=== PATIENT | male | born 1965 | race Caucasian/White ===

== ENCOUNTER 2019-09-05 09:42 | Day surgery (SDC) | payer OTHER, SELFPAY ==
[2019-09-05] VITALS (7 sets, daily range): BP systolic 103–164; BP diastolic 48–114; PULSE 73–96; RESP 13–20; TEMP 36.4; O2SAT 95–100
--- NOTE | ~2019-09-05 | XR_ITS ---
XR chest 2V DATE: 09/05/2019 11:20 INDICATION: Chest pain. Choked on piece of steak. Sore throat. Vomiting. TECHNIQUE: PA and lateral views COMPARISON: 02/27/2019 PA and lateral chest FINDINGS: Normal heart size. No hilar or mediastinal enlargement. No pulmonary infiltrate or consolid ation, pleural effusion or pulmonary vascular congestion or pneumothorax. IMPRESSION: Negative chest Reviewed, dictated and finalized at location A. MOBILE ASSEMBLY SUPERVISOR IMPRESSION: Negative chest
--- NOTE | 2019-09-05 10:26 | ED.SKABFB ---
HPI - Skin/Abscess/Foreign Bdy General Chief complaint: Unspecified <Cathy Lopes PA-C - Last Filed: 09/05/19 12:18> Stated complaint: foreign body gi <IMMANUEL Patrick Last Filed: 09/05/19 12:18> Time Seen by Provider: 09/05/19 10:03 <Cathy Lopes PA-C - Last Filed: 09/05/19 12:18> Source: patient <IMMANUEL Patrick Last Filed: 09/05/19 12:18> Mode of arrival: ambulatory <IMMANUEL Patrick Last Filed: 09/05/19 12:18> Limitations: no limitations <IMMANUEL Patrick Last Filed: 09/05/19 12:18> History of Present Illness HPI narrative: This is a 54 year old male that presents to the ER for food impaction. Reports he ate a ham steak and chicken casserole for dinner last night. Reports he woke up in the middle of the night with feeling of food being stuck. Reports he has been vomiting up small chunks of ham since this morning. Reports he tried to drink some soda this morning and it came back up. Reports a similar experience last year for which he had to have an EGD by a GI doctor and was told he had some narrowing of his esophagus. Denies fever or shortness of breath. <IMMANUEL Patrick Last Filed: 09/05/19 12:18> Related Data Home medications: Home Medications Medication Instructions Recorded Confirmed lisinopril 09/05/19 omeprazole 09/05/19 <IMMANUEL Patrick Last Filed: 09/05/19 12:18> Allergies/Adverse reactions: Allergies Allergy/AdvReac Type Severity Reaction Status Date / Time No Known Allergies Allergy Verified 09/05/19 09:50 <IMMANUEL Patrick Last Filed: 09/05/19 12:18> Review of Systems Review of Systems: Narrative: CONSTITUTIONAL: Denies fever CARDIOVASCULAR: Denies chest pain RESPIRATORY: Denies dyspnea. GASTROINTESTINAL: Reports nausea, vomiting GENITOURINARY: Denies dysuria or hematuria. <Cathy Lopes PA-C - Last Filed: 09/05/19 12:18> All systems reviewed & are unremarkable except as noted in HPI and below <Cathy Lopes PA-C - Last Filed: 09/05/19 12:18> [facility] Past Medical History Medical History: Medical History (Updated 09/05/19 @ 12:17 by Cathy Lopes PA-C) Eosinophilic esophagitis Esophageal ring Food impaction of esophagus last episode Aug History of hypertension <Cathy Lopes PA-C - Last Filed: 09/05/19 12:18> Surgical History Surgical History: Surgical History (Updated 09/05/19 @ 11:01 by Cathy Lopes PA-C) History of esophagogastroduodenoscopy (EGD) <Cathy Lopes PA-C - Last Filed: 09/05/19 12:18> Social History Social History: Social History Gender identity (if verbalized by the patient): Male <Cathy Lopes PA-C - Last Filed: 09/05/19 12:18> Exam Narrative: Exam Narrative: GENERAL: Uncomfortable appearing, actively vomiting HEAD: Normocephalic, atraumatic. EYES: EOMI. ENT: Oropharynx without tonsillar hypertrophy exudate or other lesions. NECK: Supple. No adenopathy or masses. CHEST: Clear to auscultation. No respiratory distress. No wheezes rales or rhonchi HEART: Regular rate and rhythm. No murmur heard. Normal peripheral pulses. ABDOMEN: Soft, nontender, nondistended, normal active bowel sounds. EXTREMITIES: Normal range of motion. No edema. SKIN: Warm, dry, no rash. NEURO: No focal deficits. Alert and oriented x3. PSYCH: Normal mood and affect <Cathy Lopes PA-C - Last Filed: 09/05/19 12:18> Course ELECTRONIC ENGINEERING DRAFTSPERSON/PA Physician Supervision For this patient encounter, I reviewed the ELECTRONIC ENGINEERING DRAFTSPERSON or PA documentation, treatment plan, and medical decision making; and I had [id number] time with this patient. Patient seen at the bedside in conjunction with physician physiotherapy assistant. Patient with esophageal food impaction secondary to ham steak. Patient given medications in the ED without resolution of his impaction. Patient going to GI lab with Dr. Zamora. Patient does report some improvement in his discomfort at this alena
[2019-09-05] MEDS: SODIUM CHLORIDE 0.9% IV 1,000 ML 999 ML IV CONT (10:36)
[2019-09-05] MEDS: LORAZEPAM INJ 2 MG/ML VIAL 1 MG IV PUSH (10:37)
[2019-09-05] MEDS: PANTOPRAZOLE SODIUM IV 40 MG VIAL IV PUSH (10:37)
[2019-09-05] MEDS: GLUCAGON FOR INJ 1 MG VIAL 2 MG IV PUSH (10:41)
[2019-09-05] MEDS: NITROGLYCERIN SL 0.4 MG TABLET SUBLINGUAL (10:44)
[2019-09-05 10:48] LABS: Glucose Point of Care 105 (65-105)
[2019-09-05 11:19] LABS: Basophils Percent Auto 0.5 % (0.2-1.2); Eosinophils Absolute Auto 0.2 K/mm3 (0-0.3); Eosinophils Percent Auto 2.5 % (0-4.4); Hematocrit 48.2 % (42.0-52.0); Hemoglobin 17.1 g/dL (14.0-18.0); Immature Granulocyte Absolute 0.04 K/mm3 (0.00-0.031); Immature Granulocyte Percent A 0.5 % (0-0.5); Lymphocytes Absolute Auto 2.07 K/mm3 (0.9-3.2); Mean Corpuscular HGB Conc 35.5 g/dl (32-36); Mean Corpuscular Hemoglobin 33.6 pg (26-34); Mean Corpuscular Volume 94.7 fl (80-100); Mean Platelet Volume 12.5 fl (7.4-10.4); Monocytes Absolute Auto 0.7 K/mm3 (0.1-0.6); Monocytes Percent Auto 8.2 % (2.6-8.5); Neutrophils Percent Auto 62.3 % (45.5-73.1); Platelet Count Result 173 k/mm3 (150-375); Red Blood Count 5.09 M/mm3 (4.6-6.20); Red Cell Distribution Width 12.3 % (11.5-14.5)
[2019-09-05 11:32] LABS: Alanine Aminotransferase 221 U/L (4-50); Albumin Level 5.1 g/dL (3.5-5.1); Alkaline Phosphatase 94 U/L (38-126); Aspartate Amino Transferase 97 U/L (17-59); Bilirubin,Total 0.6 mg/dL (0.2-1.3); Blood Urea Nitrogen 10 mg/dL (9-20); Calcium 9.6 mg/dL (8.4-10.2); Carbon Dioxide 27 mmol/L (22-30); Chloride 99 mmol/L (98-107); Estimated CRCL calculation 111 ml/min; Estimated Glomerular Filt Rate > 60; Glucose 105 mg/dL (75-110); Potassium 4.1 mmol/L (3.4-5.0); Sodium 143 mmol/L (137-145)
--- NOTE | 2019-09-05 12:11 | WPDANESEPP ---
Anes - Eval Pre Procedure Procedure: Operation Date: 09/05/19 12:00 Proposed Procedures p Esophagogastroduodenoscopy - Yusuf Zamora MD Date/Time: 09/05/19 12:11 Surgeon: Farhana Zamora MD Pre Op Diagnosis: foreign body gi Patient Data Age: 54 Gender: M Height: 5 ft 11 in Weight: 85 kg Last Vital Signs Temp 97.5 F L 09/05/19 09:46 Pulse 88 09/05/19 11:04 Resp 18 09/05/19 11:04 BP 130/87 09/05/19 11:04 Pulse Ox 97 09/05/19 11:04 Allergies Allergy/AdvReac Type Severity Reaction Status Date / Time No Known Allergies Allergy Verified 09/05/19 09:50 Home Medications Medication Instructions Recorded Confirmed Type lisinopril 09/05/19 History omeprazole 09/05/19 History Laboratory Tests 09/05/19 09/05/19 09/05/19 10:43 11:14 11:14 WBC 8.0 K/mm3 K/mm3 (4.5-10.0) RBC 5.09 M/mm3 M/mm3 (4.6-6.20) Hgb 17.1 g/dL g/dL (14.0-18.0) Hct 48.2 % % (42.0-52.0) MCV 94.7 fl fl (80-100) MCH 33.6 pg pg (26-34) MCHC 35.5 g/dl g/dl (32-36) RDW 12.3 % % (11.5-14.5) Plt Count 173 k/mm3 k/mm3 (150-375) MPV 12.5 fl H fl (7.4-10.4) Immature Gran % (Auto) 0.5 % % (0-0.5) Neut % (Auto) 62.3 % % (45.5-73.1) Lymph % (Auto) 26.0 % % (18.3-44.2) [place] % (Auto) 8.2 % % (2.6-8.5) Eos % (Auto) 2.5 % % (0-4.4) Baso % (Auto) 0.5 % % (0.2-1.2) Lymph # (Auto) 2.07 K/mm3 K/mm3 (0.9-3.2) [place] # (Auto) 0.7 K/mm3 H K/mm3 (0.1-0.6) Eos # (Auto) 0.2 K/mm3 K/mm3 (0-0.3) Baso # (Auto) 0.0 K/mm3 K/mm3 (0.0-0.1) Abs Immat Gran (auto) 0.04 K/mm3 H K/mm3 (0.00-0.031) Absolute Neuts (auto) 5.0 K/mm3 K/mm3 (1.3-6.7) Absolute Nucleated RBC 0.0 K/mm3 K/mm3 (0.0-0.012) Nucleated RBC % 0.0 % % (0.0-0.2) Sodium 143 mmol/L mmol/L (137-145) Potassium 4.1 mmol/L mmol/L (3.4-5.0) Chloride 99 mmol/L mmol/L (98-107) Carbon Dioxide 27 mmol/L mmol/L (22-30) BUN 10 mg/dL mg/dL (9-20) Creatinine 0.70 mg/dL mg/dL (0.7-1.3) Estim Creat Clear Calc 111 ml/min ml/min Estimated GFR > 60 (59 - ) Glucose 105 mg/dL mg/dL (75-110) POC Capillary Glucose 105 mg/dl mg/dl (65-105) Calcium 9.6 mg/dL mg/dL (8.4-10.2) Total Bilirubin 0.6 mg/dL mg/dL (0.2-1.3) AST 97 U/L H U/L (17-59) ALT 221 U/L H U/L (4-50) Alkaline Phosphatase 94 U/L U/L (38-126) Total Protein 9.0 g/dL H g/dL (6.3-8.2) Albumin 5.1 g/dL g/dL (3.5-5.1) Patient hx anesthesia problems: none Family hx anesthesia problems: none [facility] Past Medical History Medical History (Updated 09/05/19 @ 12:17 by Cathy Lopes PA-C) Eosinophilic esophagitis Esophageal ring Food impaction of esophagus last episode Aug History of hypertension Surgical History Surgical History (Updated 09/05/19 @ 11:01 by Cathy Lopes PA-C) History of esophagogastroduodenoscopy (EGD) Social History Social History Gender identity (if verbalized by the patient): Male Exam Day of Procedure 09/05/19 12:11
--- NOTE | 2019-09-05 12:12 | WPDGICN ---
Assessment and Plan Additional Plan This is a 54-year-old white male patient mass see at the request of the emergency room. Patient in usual state of health till last evening he ate ham in meat. He subsequently was unable to swallow. He woke in the middle the night still unable to swallow he had regurgitate his small amount of food. He continues to be unable to swallow and for this reason went to the emergency room for further evaluation. Past history is significant for heartburn he has been treated for acid reflux for about 1 year. He has been treated with omeprazole 20 mg p.o. daily. There was a brief interval during this last year where this was discontinued. He states while taking this medication anal longer has heartburn. In February of 2019 had a food impaction. Distal esophageal ring was encountered. There was a suspicion of the eosinophilic esophagitis. Patient never had the web dilated. it was anticipated he would follow up for outpatient dilatation that has not yet been accomplished. Patient denies weight loss. Family history is noncontributory. Current medications include lisinopril and omeprazole. He has no stated drug allergies. Past medical history is significant for hypertension in addition to GE reflux. As stated there is a suspicion unconfirmed of eosinophilic esophagitis. Physical exam reveals patient to be alert. Comfortable at rest. HEENT exam unremarkable. Lungs are clear to auscultation and percussion. Heart is without murmur or extra sounds. Abdominal exam bowel sounds present soft nontender with no organomegaly. Rectal exam is deferred. CBC reveals CBC to be normal. Electrolytes are unremarkable. AST 97, ALT 221, total bilirubin 0.6, alk-phos 94. Impression 1. Food impaction. Appears to be on the basis of known esophageal web stricturing. GE reflux or possible eosinophilic esophagitis is to be considered. Plan is for EGD today. Dilatation and biopsy should be accomplished if unable to be accomplished today will need to be at a later date. 2. Heartburn suggestive of underlying acid reflux. Patient should remain on long-term PPI therapy. Anti-reflux measures are encourage. 3. Hypertension. Appears to be stable on lisinopril. 4. Elevated LFTs. Etiology unclear patient will require choir up patient follow-up with this and workup. GI Consult Note Consult date/time: 09/05/19 12:12 HPI: Zachariah Romero is a 54 year old male [facility] Past Medical History Medical History (Updated 09/05/19 @ 11:57 by Melissa Suero CRNA) Eosinophilic esophagitis Esophageal ring Food impaction of esophagus last episode Aug History of hypertension Surgical History Surgical History (Updated 09/05/19 @ 11:01 by Cathy Lopes PA-C) History of esophagogastroduodenoscopy (EGD) Social History Social History Gender identity (if verbalized by the patient): Male Meds Home Medications and Allergies Home Medications Medication Instructions Recorded Confirmed Type lisinopril 09/05/19 History omeprazole 09/05/19 History Allergies Allergy/AdvReac Type Severity Reaction Status Date / Time No Known Allergies Allergy Verified 09/05/19 09:50 Vital Signs Vital Signs - 24 hr 09/05/19 09:46 09/05/19 10:45 09/05/19 11:04 Temperature 36.4 C L Pulse Rate 93 94 88 Respiratory Rate 18 13 18 Blood Pressure 164/114 H 124/91 H 130/87 Pulse Oximetry 100 95 97 Results Labs CBC & Chem 7: 09/05/19 11:14 09/05/19 11:14 Labs: Short CBC 09/05/19 Range/Units 11:14 WBC 8.0 (4.5-10.0) K/mm3 Hgb 17.1 (14.0-18.0) g/dL Hct 48.2 (42.0-52.0) % Plt Count 173 (150-375) k/mm3 BMP 09/05/19 11:14 Sodium 143 Potassium 4.1 Chloride 99 Carbon Dioxide 27 BUN 10 Creatinine 0.70 Glucose 105 Calcium 9.6 Liver Function 09/05/19 Range/Units 11:14 Total Bilirubin 0.6 (0.2-1.3) mg/dL AST 97 H (17-59) U/L ALT
[2019-09-05] MEDS: LACTATED RINGERS 1,000 ML 150 ML IV CONT (12:20)
[2019-09-05 13:03] LABS: Hepatitis B Surface Antigen Negative (Negative)
[2019-09-05 13:04] LABS: Alanine Aminotransferase 215 U/L (4-50); Albumin Level 5.1 g/dL (3.5-5.1); Alkaline Phosphatase 96 U/L (38-126); Aspartate Amino Transferase 102 U/L (17-59); Bilirubin,Total 0.7 mg/dL (0.2-1.3)
[2019-09-05 13:09] LABS: HAV RESULT Negative (Negative); Hepatitis B Core IgM Result Negative (Negative)
[2019-09-05 13:21] LABS: Hepatitis C Virus Antibody Negative (Negative)
== END 2019-09-05 13:27 | disposition home or self-care (01) ==
LOC: ANHED 12:17 → ANHSURGERY 09-08 08:09
PROVIDERS: Physician Assistant; Emergency Provider Emergency Medicine; Visit Provider Internal Medicine Gastroenterology
PROC: 0DJ08ZZ Inspection of Upper Intestinal Tract, Via Natural or Artificial Opening Endoscopic (ICD-10-PCS; CPT 43235; principal; 2019-09-05 12:00)
DX: K21.0 Gastro-esophageal reflux disease with esophagitis (principal); K22.2 Esophageal obstruction; I10 Essential (primary) hypertension; R94.5 Abnormal results of liver function studies
CPT/HCPCS: 43235; 43450; 36415; 71046; 80053; 80074; 80076; 82248; 82948; 85025; 96361; 96374; 96375; 99285; A9270; C9113; J1610; J2060; J2704; J7030; J7120

== ENCOUNTER 2020-07-14 16:47 | Emergency (ER) | payer OTHER, SELFPAY ==
--- NOTE | ~2020-07-14 | CT_ITS ---
EXAMINATION: CT abdomen pelvis w con EXAM DATE: 07/14/2020 17:57 INDICATION: Right lower quadrant pain. TECHNIQUE: Spiral CT of the abdomen and pelvis was performed following intravenous injection of 100 m L Omnipaque 350. Axial, coronal and sagittal images were reviewed. The dose-length product (DLP) fo r this examination was 705.69 mGy-cm. The exposure was tailored according to patient size (auto mA e xposure control), and iterative reconstruction (ASIR) was used as additional dose reduction technique . There is no prior study for comparison. FINDINGS: The liver, spleen, adrenal glands and pancreas are unremarkable. Gallbladder is unremarkab le. No biliary obstruction. Portal and splenic veins are patent. Kidneys enhance symmetrically. T here is no hydronephrosis. The prostate is unremarkable. The bladder is unremarkable. There is no retroperitoneal or pelvic lymphadenopathy. There may be a small umbilical mesh. The appendix is normal. The stomach and small bowel are unremarkable. Several sigmoid diverticula. T here is expected amount of colonic stool. No free intraperitoneal gas. The heart is normal in siz e. There are no pericardial or pleural effusions. The lung bases are unremarkable. There are no os teoblastic or osteolytic lesions identified. IMPRESSION: 1. No acute intra-abdominal findings. Reviewed, dictated and finalized at location A. H SCIENCE FACULTY MEMBER
[2020-07-14 16:54] VITALS: BP 159/102; PULSE 99; RESP 17; TEMP 36.3; O2SAT 98
[2020-07-14] MEDS: SODIUM CHLORIDE 0.9% IV 1,000 ML 999 ML IV CONT (17:02)
[2020-07-14 17:07] LABS: Basophils Absolute Auto 0.1 K/mm3 (0.0-0.1); Basophils Percent Auto 0.6 % (0.2-1.2); Eosinophils Absolute Auto 0.1 K/mm3 (0-0.3); Eosinophils Percent Auto 1.3 % (0-4.4); Hematocrit 49.7 % (42.0-52.0); Hemoglobin 17.9 g/dL (14.0-18.0); Immature Granulocyte Absolute 0.13 K/mm3 (0.00-0.031); Immature Granulocyte Percent A 1.2 % (0-0.5); Lymphocytes Absolute Auto 2.47 K/mm3 (0.9-3.2); Lymphocytes Percent Auto 23.3 % (18.3-44.2); Mean Corpuscular Hemoglobin 34.5 pg (26-34); Mean Corpuscular Volume 95.8 fl (80-100); Mean Platelet Volume 10.9 fl (7.4-10.4); Monocytes Percent Auto 9.4 % (2.6-8.5); Neutrophils Absolute Auto 6.8 K/mm3 (1.3-6.7); Neutrophils Percent Auto 64.2 % (45.5-73.1); Platelet Count Result 191 k/mm3 (150-375); Red Blood Count 5.19 M/mm3 (4.6-6.20); Red Cell Distribution Width 11.9 % (11.5-14.5); White Blood Count 10.6 K/mm3 (4.5-10.0)
[2020-07-14 17:13] LABS: Add Urine Microscopic? NO; Appearance Urine Clear (Clear); Bilirubin Urine Negative (Negative); Blood Urine Negative (Negative); Color Urine Colorless (Yellow); Glucose Urine UA Negative (Negative); Ketones Urine Negative (Negative); Leukocyte Esterase Ur Negative LEU/UL (Negative); Nitrate Urine Negative (Negative); Protein Urine Negative (Negative); Specific Grav Ur 1.005 (1.001-1.035); Urobilinogen Urine Negative mg/dL (<2.0); WBC Urine 0-3 /hpf
[2020-07-14 17:20] LABS: Alanine Aminotransferase 241 U/L (4-50); Albumin Level 4.5 g/dL (3.5-5.1); Alkaline Phosphatase 103 U/L (38-126); Anion Gap 6 mmol/L (8-16); Aspartate Amino Transferase 165 U/L (17-59); Bilirubin,Total 0.9 mg/dL (0.2-1.3); Blood Urea Nitrogen 12 mg/dL (9-20); Calcium 9.3 mg/dL (8.4-10.2); Carbon Dioxide 32 mmol/L (22-30); Chloride 97 mmol/L (98-107); Estimated CRCL calculation 109 ml/min; Estimated Glomerular Filt Rate > 60; Glucose 113 mg/dL (75-110); Lipase 144 U/L (23-300); Potassium 4.1 mmol/L (3.4-5.0); Sodium 135 mmol/L (137-145)
[2020-07-14] MEDS: MORPHINE SULFATE (*CRX) 4 MG/ML INJ IV PUSH (17:26)
--- NOTE | 2020-07-14 17:43 | PC.NURSE ---
Patient taken to CT.
--- NOTE | 2020-07-14 17:56 | ED.ABDPAIN ---
HPI - Abdominal Pain General Chief Complaint: Abdominal Pain Stated Complaint: right abd pain Time Seen by Provider: 07/14/20 16:51 Source: patient Mode of arrival: ambulatory Limitations: no limitations History of Present Illness HPI narrative: Patient is a 55-year-old male who presents to emergency department for evaluation of focal right lower quadrant pain for the last 24 hours patient denies similar occurrence injury trauma recent illness. Patient not take anything for his symptoms symptoms are worse with activity and movement pain does not radiate. Denies rectal bleeding melena or other complaints and presents in no distress Related Data Home Medications Medication Instructions Recorded Confirmed lisinopril 09/05/19 omeprazole 09/05/19 Allergies Allergy/AdvReac Type Severity Reaction Status Date / Time No Known Allergies Allergy Verified 09/05/19 09:50 Review of Systems Review of Systems: All systems reviewed & are unremarkable except as noted in HPI and below PMFSH Past Medical History Medical History Eosinophilic esophagitis Esophageal ring Food impaction of esophagus last episode Aug History of hypertension Surgical History Surgical History History of esophagogastroduodenoscopy (EGD) Social History Social History Gender identity (if verbalized by the patient): Male Exam Narrative: Exam Narrative: GENERAL: Well-appearing, well-nourished, and in no acute distress. HEAD: Normocephalic, atraumatic. EYES: PERRLA and EOMI. ENT: Nares clear, no rhinorrhea or epistaxis. Mucous membranes moist. CHEST: Clear to auscultation. No respiratory distress. No wheezes rales or rhonchi HEART: Regular rate and rhythm. No murmur heard. Normal peripheral pulses. ABDOMEN: Soft, focal right lower quadrant tenderness to palpation with voluntary guarding, nondistendedsounds. EXTREMITIES: Normal range of motion. No edema. SKIN: Warm, dry, no rash. NEURO: No focal deficits. Alert and oriented x3. PSYCH: Normal mood and affect. Course Course Emergency Course: Patient in the room at this time in no distress made aware of case findings treatment plan and agrees to follow-up as instructed with his primary care who is already following him for his elevated liver enzymes patient been advised to watch his drinking of alcohol closely patient was made aware that the CAT scan did not reveal an etiology for his symptoms nor is or any high risk changes in the blood work patient is afebrile in the room in no distress will be discharged home with planned outpatient follow-up and given strict reasons to return and agrees with this plan Vital Signs Vital signs: Vital Signs Temperature 97.4 F L 07/14/20 16:54 Pulse Rate 99 07/14/20 16:54 Respiratory Rate 17 07/14/20 16:54 Blood Pressure 159/102 H 07/14/20 16:54 Pulse Oximetry 98 07/14/20 16:54 Temperature 97.4 F L 07/14/20 16:54 Pulse Rate 65 07/14/20 18:46 Respiratory Rate 18 07/14/20 18:46 Blood Pressure 131/77 07/14/20 18:46 Pulse Oximetry 97 07/14/20 18:46 MDM - Abdominal Pain MDM Narrative Medical decision making narrative: Patient is a 55-year-old male who presents with focal right sided abdominal pain with no good etiology for his symptoms patient advised to follow with primary care for further evaluation and given reasons to return patient is afebrile nontoxic-appearing no distress felt appropriate for outpatient reevaluation Differential Diagnosis Differential diagnosis: Likely abdominal pain, acute appendicitis, calculus of kidney, constipation, diverticulitis, gastroenteritis, pancreatitis and small bowel obstruction Lab Data Result diagrams: 07/14/20 16:59 07/14/20 16:59 Labs: Lab Results 07/14/20 07/14/20 07/14/20 Range/Units
[2020-07-14] MEDS: KETOROLAC 30 MG/ML VIAL (*BKC) IV PUSH (18:29)
[2020-07-14 18:46] VITALS: BP 131/77; PULSE 65; RESP 18; O2SAT 97
== END 2020-07-14 19:26 | disposition home or self-care (01) ==
PROVIDERS: Emergency Medicine Emergency Medical Services; Emergency Provider Family Medicine
DX: R10.31 Right lower quadrant pain (principal); I10 Essential (primary) hypertension
CPT/HCPCS: 36415; 74177; 80053; 81003; 83690; 85025; 96361; 96374; 96375; 99284; J1885; J2270; J7030; Q9967

== ENCOUNTER 2024-02-19 08:46 | Outpatient (CLI) | payer OTHER, SELFPAY ==
--- NOTE | ~2024-02-19 | MR_ITS ---
EXAMINATION: MR shoulder LT wo con DATE: 02/19/2024 09:22 INDICATION: Left shoulder pain and limited range of motion TECHNIQUE: Magnetic resonance imaging (MRI) of the left shoulder was performed without intravenous co ntrast. Sequences included axial PD-weighted FS FSE, coronal oblique PD-weighted FS FSE, coronal obli que T2-weighted FS FSE, sagittal PD-weighted FS FSE, and sagittal T1-weighted SE. COMPARISON: None. FINDINGS: Coracoacromial arch: The acromion undersurface is curved in morphology (type II). There is mild thickening of the coracoac romial ligament. 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 Rotator cuff: Mild distal supraspinatus tendinopathy without tear. The infraspinatus, teres minor and subscapularis tendons are normal. Normal rotator cuff muscle bulk and signal. Biceps tendon, glenoid labrum and glenohumeral cartilage: Long head of the biceps tendon is normal. There is a normal variant accessory slip of the long head b iceps tendon which appears to fuse with the biceps aleida sling at the cephalad aspect of the intertu bercular groove. There is a tear with mild separation of a small triangular portion of free edge of t he labrum at the 11:00-10:00 position of the posterior glenoid labrum. There is more amorphous increa sed signal at the superior glenoid labrum labrum consistent with irregular labral degeneration. 6 mm diameter deep chondral ulceration without degenerative subchondral changes at the posterior superomed ial aspect of the humeral head. Glenoid cartilage is normal. Fluid: Physiologic amount of fluid in the glenohumeral joint and biceps tendon sheath. No loose osteochondr al bodies. No abnormal fluid in the subacromial/subdeltoid bursa to suggest bursitis. Bones: Low signal intensity bone island at the humeral head. No fracture or pathologic marrow replacing proc ess. IMPRESSION: 1. Tear along the free edge of the posterosuperior glenoid labrum with more irregular degeneration of the superior to anterosuperior labrum. 2. Small deep chondral ulceration at the humeral head. 3. Mild supraspinatus tendinopathy without tear. 4. 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 Reviewed, dictated and finalized at location A. IMPRESSION: 1. Tear along the free edge of the posterosuperior glenoid labrum with more irr egular degeneration of the superior to anterosuperior labrum. 2. Small deep chondral ulceration at the humeral head. 3. Mild supraspinatus tendinopathy without tear. 4. 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
== END 2024-02-19 08:47 ==
LOC: MICIMG 08:49
DX: S46.002A Unspecified injury of muscle(s) and tendon(s) of the rotator cuff of left shoulder, initial encounter (principal); S46.10 Unspecified injury of muscle, fascia and tendon of long head of biceps; X58.XXXA Exposure to other specified factors, initial encounter; M19.012 Primary osteoarthritis, left shoulder
CPT/HCPCS: 73221

== ENCOUNTER 2024-04-08 13:32 | Outpatient (CLI) | payer OTHER, SELFPAY ==
--- NOTE | ~2024-04-08 | MR_ITS ---
EXAMINATION: MR lumbar spine wo/w con DATE: 04/08/2024 14:26 INDICATION: Lumbar radiculopathy. TECHNIQUE: Magnetic resonance imaging (MRI) of the lumbar spine was performed without and with 18 mL MultiHance intravenous contrast. COMPARISON: None FINDINGS: There is 8 degrees dextrocurvature of lumbar spine. There is 3 mm retrolisthesis of L3 on L 4. Vertebral body heights are normal. There is severely decreased disc height from L3-L4 through L5-S 1. The distal spinal cord signal intensity is normal. The conus medullaris is at T12-L1. The followin g disc levels are specifically discussed: L1-L2: The disc is bulging. There is mild bilateral facet joint osteoarthritis. There is mild bilater al neural foraminal stenosis. There is mild central canal stenosis. L2-L3: The disc is bulging. There is moderate right and severe left facet joint osteoarthritis. There is mild bilateral neural foraminal stenosis. There is mild central canal stenosis. L3-L4: The disc is bulging. There is severe bilateral facet joint osteoarthritis. There is moderate b ilateral neural foraminal stenosis. There is mild central canal stenosis. L4-L5: The disc is bulging. There is severe bilateral facet joint osteoarthritis. There is moderate r ight and mild left neural foraminal stenosis. There is mild central canal stenosis. There is posterio r decompression. L5-S1: The disc is bulging. There is moderate bilateral facet joint osteoarthritis. There is moderate bilateral neural foraminal stenosis. There is mild central canal stenosis. There is posterior decomp ression. IMPRESSION: 1. Severe lumbar spondylosis. Reviewed, dictated and finalized at location A.
== END 2024-04-08 13:33 | disposition home or self-care (01) ==
PROVIDERS: Visit Provider Nurse Practitioner Family
DX: M47.26 Other spondylosis with radiculopathy, lumbar region (principal)
CPT/HCPCS: 72158; A9577